=== PATIENT | male | born 1995 | race Caucasian/White ===

== ENCOUNTER 2016-11-22 19:48 | Emergency (ER) | payer BC ==
[~2016-11-22] VITALS: Ht 177.8 cm; Wt 70.7 kg
[2016-11-22 19:51] VITALS: TEMP 36.7; Ht 177.8 cm; Wt 70.7 kg
[2016-11-22] MEDS ORDERED: XYLOCAINE 1%/SOD BICARB 20 ML VIAL INFIL STA (20:14)
[2016-11-22 21:16] VITALS: BP 135/81; PULSE 70; O2SAT 96
--- NOTE | 2016-11-22 21:21 | EMERGENCY ROOM VISIT NOTE ---
ED Visit Note First contact with patient: 20:00 Chief Complaint: "Cut right pinky finger" History of Present Illness: This patient is a 21-year-old male who presents to the Emergency Department via private vehicle for evaluation of their right pinky laceration. Patient sustained the laceration while washing dishes, and while twisting his hand it broke one of the glasses subsequently a piece of glass and cut the medial aspect at the proximal right fifth digit.. They report a moderate amount of bleeding initially. They deny any numbness or tingling into the distal extremity. They report no decreased range of motion of the affected digit. Patient rates his current discomfort as a 2/10. Patient's Tetanus status is currently up-to-date. Medications: None reported Allergies: No known allergies PMH: No pertinent past medical history at this time SHx: Patient lives and is employed locally. ROS: All pertinent positive and negative review of systems are appropriately documented in the History of Present Illness. Physical Exam: VITAL SIGNS - Vital signs and nursing notes were reviewed. GENERAL -21-year-old male appearing his stated age who is in no acute distress. Communicates well with provider and answers questions appropriately. SKIN - There is a 2 cm long, L-shaped laceration at a 90 angle noted at the proximal medial base of the right fifth digit, favoring the lateral aspect. The edges gape apart with traction. No foreign bodies appreciated. Upon further examination there are no deep structures including vessel, tendon, or bony structures appreciated. There is no active bleeding noted. MUSCULOSKELETAL - Laceration as described above. +5/5 strength appreciated of the affected digit. Full range of motion of the affected digit. NEUROLOGIC -he is neurologically intact in this digit. No neuro deficit. VASCULAR - Capillary refill was brisk. ED Course: Patient was seen and evaluated by myself. Risks and benefits of performing primary wound closure versus no repair were discussed with the patient who verbalizes understanding. Verbal consent was obtained prior to performing the procedure. Under my supervision and direction the physician food service assistant student perform primary wound closure of this area, with consent by the patient. 4 cc of 1% buffered lidocaine was used to perform local anesthetization at the base of the right fifth digit. This region was cleansed and prepped in the typical sterile fashion utilizing normal saline and Betadine. The wound was sterilely draped. Once proper anesthetization was established, the wound was further examined and demonstrated no deep involvement. The wound was copiously irrigated with normal saline and Betadine. The wound was closed using 5 simple, 5-0 nylon sutures with the wound edges being well approximated. Patient tolerated the procedure well. No complications were met. The wound was cleansed and dressed with a Bacitracin dressing. A metal splint was applied to the finger for comfort. Patient educated on worrisome symptoms for return visit to the Emergency Department. Patient discharged to home in good condition. Problem List Medical Problems: (1) IBS (irritable bowel syndrome) Status: Chronic Current/Historical Medications No Active Prescriptions or Reported Meds Allergies Coded Allergies: No Known Allergies (Unverified , 06/17/14) Vital Signs Date Time Temp Pulse Resp B/P Pulse Ox O2 Delivery O2 Flow Rate FiO2 11/22/16 21:16 70 16 135/81 96 Room Air 11/22/16 19:51 36.7 78 16 140/91 95 Room Air Departure Information Impression Primary Impression: Laceration Dispostion Home / Self-Care Condition GOOD Prescriptions No Active Prescriptions or Reported Meds Referrals No Doctor, Assigned (PCP) Patient Instructions [facility] Additional Instructions Discharge Instructions: You have received 5 sutures on your right hand. These sutures are NOT dissolvable and WILL need to be removed by a health care provider in 10 days. You can return to the Emergency Department or contact your Primary Care Provider to have the sutures removed. Please wear the splint for comfort until the sutures are removed. Proper wound care is essential for adequate wound healing and infection prevention. You can shower and clean the wound with soap and water. Do not scour over the wound, pat dry with a towel. Do not submerse the wound (i.e. bathe or dish wash) until the sutures have been removed. You can use an antibiotic ointment with a dressing over the wound for the next 3-4 days. After this time you may leave the wound dry and open to the air. If crust develops over the wound you can use a Q-tip to apply a 1:1 peroxide:water solution to clean the wound. Look for signs of infection of the wound including: increased pain, swelling, foul discharge, streaking, or increased temperature. If any of these are noticed you should return to the Emergency Department for further assessment and treatment. As with any laceration you may have received nerve damage to the surrounding tissues. This damage may or may not be permanent. You should keep the area covered with sunscreen for the first 6 months to 1 year when at risk for exposure to help minimize scarring. You can also use scar reducing creams or Vitamin E oil to help minimize scarring. For pain control, you can use the following ryrl-dex-pilykel medicines (if >12 yo): - Regular strength (325mg/tab) Tylenol (acetaminophen) 2 tabs every 4-6 hours as needed. Do not exceed 12 tablets in a 24 hour period. Avoid taking more than 3 grams (3000 mg) of Tylenol per day. This includes any other sources of acetaminophen you may take on a regular basis. - Regular strength (200 mg/tab) Advil (ibuprofen) 1-2 tabs every 4-6 hours as needed. Do not exceed a dose of 3200 mg per day. Return to the emergency department if your symptoms worsen despite treatment course outlined above.
== END 2016-11-22 21:29 | disposition home or self-care (01) ==
LOC: C.EDB 19:49 → C.EDD 21:29
DX: S61.216A Laceration without foreign body of right little finger without damage to nail, initial encounter (principal); Y93.G1 Activity, food preparation and clean up; W25.XXXA Contact with sharp glass, initial encounter; K58.9 Irritable bowel syndrome, unspecified